=== PATIENT | female | born 1960 | race Caucasian/White ===

== ENCOUNTER 2025-01-31 20:04 | Emergency (ER) | payer MEDICARE, SELFPAY ==
[2025-01-31 20:19] VITALS: BP 144/72; PULSE 111; RESP 20; TEMP 37.5; O2SAT 93; BMI 53.6
[2025-01-31 20:34] VITALS: PULSE 99; O2SAT 98
--- NOTE | 2025-01-31 20:48 | USR_ITS ---
PROCEDURE INFORMATION: Exam: US Left Limited Joint or Other Non-Vascular Extremity Structure Exam date and time: 01/31/2025 9:38 PM Age: 64 years old Clinical indication: Injury or trauma; Other: Unknown; Blunt trauma; Elbow; Left; Injury date: About two weeks ago; Additional info: Left elbow questionable abscess TECHNIQUE: Imaging protocol: US left limited joint or other nonvascular extremity structure. Real-time ultrasound with image documentation. Exam focused on the area of clinical interest. COMPARISON: No relevant prior studies available. FINDINGS: Soft tissues: Unremarkable. No loculated collections. Other findings: Subcutaneous complex fluid collection measuring 2.2 x 0.8 x 1.5 cm in the elbow region in the area of concern consistent with an abscess, an olecranon bursitis may also be a consideration depending on the clinical setting. US/US soft tissue/extremity 11472 IMPRESSION: Subcutaneous complex fluid collection measuring 2.2 x 0.8 x 1.5 cm in the elbow region in the area of concern consistent with an abscess, an olecranon bursitis may also be a consideration depending on the clinical setting.
[2025-01-31 21:04] LABS: Erythrocyte Sedimentation Rate 27 mm/hr (0-15)
[2025-01-31 21:05] LABS: Basophils % 0.3 %; Eosinophils # 0.2 10^3/uL (0.0-0.8); Eosinophils % 1.6 %; Hematocrit 37.7 % (36-47); Lymphocytes # 2.1 10^3/uL (0.8-4.8); Lymphocytes % 22.6 %; Mean Corpuscular HGB Conc 33.2 g/dL (30-55); Mean Corpuscular Hemoglobin 29.9 pg (27-33); Mean Corpuscular Volume 90.2 fl (85-98); Mean Platelet Volume 10.1 fL (7.4-10.4); Monocytes # 0.8 10^3/uL (0.2-0.9); Monocytes % 8.8 %; Neutrophils # 6.14 10^3/uL (1.8-7.7); Neutrophils % 66.5 %; Nucleated Red Blood Cells % 0 %; Platelet Count 258 10^3/cmm (157-399); Red Blood Count 4.18 10^6/uL (3.85-5.65); White Blood Count 9.24 10^3/uL (3.29-11.43)
--- NOTE | 2025-01-31 21:15 | ED_ITS ---
HPI - Wound/Laceration 2 General: Chief Complaint: Wound/Laceration Stated Complaint: Left Elbow Injury Time Seen by Provider: 01/31/25 20:06 Source: patient Mode of arrival: ambulatory Limitations: no limitations History of Present Illness: Patient is a 64-year-old female who presents the emergency department complaining of left elbow redness and pain for the past week. States that it started swelling and recently burst open with purulent drainage, and notes that the pain has gotten severely worse. Pain shooting down the left arm. Denies any fever, nausea/vomiting, or any other systemic signs of illness. Denies any known trauma or history of bursitis. She is afebrile at this time. Onset (ago): week(s) Extremity Location: Left: elbow Associated symptoms: Reports no associated symptoms; Denies chills, fever(s), nausea or vomiting Related Data Previous Rx's ?Medication ?Instructions ?Recorded doxycycline hyclate 100 mg tablet 100 mg PO BID 10 day s #20 tabs 01/31/25 Allergies Allergy/AdvReac Type Severity Reaction Status Date / Time silver Allergy Unknown Verified 01/31/25 20:23 Review of Systems 2 General: Reports: 10 or more systems reviewed and unremarkable except in HPI and below Const: Denies: fever(s) or chills Card: Denies: chest pain Resp: Denies: dyspnea GI: Denies: abdominal pain, nausea, vomiting or diarrhea Musc: Reports: joint pain (Left elbow); Denies: extremity pain Skin/Breast: Reports: erythema, skin pain, skin tenderness, sores and new lesions; Denies: rash Neuro: Denies: headache(s) Physical Exam 2 Const: COMMON NORMALS: no acute distress, average body habitus, patient oriented x3, no limitations, healthy appearing, alert and well nourished HENMT: COMMON NORMALS: normocephalic and atraumatic HEAD & SCALP: n ormocephalic and atraumatic Neck/C-Spine: COMMON NORMALS: full ROM, no lymphadenopathy, supple and no meningeal signs OTHER: Tracheostomy Resp: COMMON NORMALS: normal respiratory effort, No use of accessory muscles and clear to auscultation bilaterally AUSCULTATION: clear to auscultation bilaterally Cardio: COMMON NORMALS: regular rate and regular rhythm RATE: regular rate RHYTHM: regular rhythm Extremity: COMMON NORMALS: full ROM and capillary refill normal NARRATIVE EXTREMITY EXAM: Lesion to olecranon on the left side with purulent drainage and surrounding erythema. Medial to this there is a second erythematous/indurated lesion with associated swelling. Neuro: COMMON NORMALS: patient oriented x3, moves all extremities, no focal motor deficits and no sensory deficits noted SENSORIUM/ORIENTATION: Yes alert MENINGEAL SIGNS: Yes no meningeal signs Skin: COMMON NORMALS: no rashes or lesions noted, no wounds and turgor normal GENERAL SKIN EXAM: no rashes or lesions noted and turgor normal Course 2 Vital Signs: Vital signs: Vital Signs Temperature 99.5 F 01/31/25 20:19 Pulse Rate 99 01/31/25 20:34 Respiratory Rate 20 H 01/31/25 20:19 Blood Pressure 144/72 01/31/25 20:19 Pulse Oximetry 98 01/31/25 20:34 Oxygen Delivery Me thod Room Air 01/31/25 20:34 MDM - Wound/Laceration Medical Decision Making This patient presented with swelling to left elbow. It was actively draining purulent material at time of exam. Labs showed no elevation in white count or CRP, mildly elevated ESR. Ultrasound showed evidence of an abscess, though it is already open and draining we will treat with antibiotics. She had no other symptoms to report and there was no red streaking on exam or other concerning physical exam findings of infection spreading. Ultimately she is to follow-up with her regular doctor in the next 48 hours for recheck and to make sure that she is getting better on her doxycycline. Also given a dose of IV ceftriaxone here. Return precautions given, she verbalized understanding. Lab Data 01/31/25 20:58 Laboratory Results WBC 9.24 10^3/uL (3.29-11.43) 01/31/25 20:58 RBC 4.18 10^6/uL (3.85-5.65) 01/31/25 20:58 Hgb 12.50 g/dL (11.27-16.99) 01/31/25 20:58 Hct 37.7 % (36-47) 01/31/25 20:58 MCV 90.2 fl (85-98) 01/31/25 20:58 MCH 29.9 pg (27-33) 01/31/25 20:58 MCHC 33.2 g/dL (30-55) 01/31/25 20:58 RDW 13.0 % (12.1-15.1) 01/31/25 20:58 Plt Count 258 10^3/cmm (157-399) 01/31/25 20:58 MPV 10.1 fL (7.4-10.4) 01/31/25 20:58 Neut % (Auto) 66.5 % 01/31/25 20:58 Lymph % (Auto) 22.6 % 01/31/25 20:58 Stone % (Auto) 8.8 % 01/31/25 20:58 Eos % (Auto) 1.6 % 01/31/25 20:58 Baso % (Auto) 0.3 % 01/31/25 20:58 Neut # (Auto) 6.14 10^3/uL (1.8-7.7) 01/31/25 20:58 Lymph # (Auto) 2.1 10^3/uL (0.8-4.8) 01/31/25 20:58 Stone # (Auto) 0.8 10^3/uL (0.2-0.9) 01/31/25 20:58 Eos # (Auto) 0.2 10^3/uL (0.0-0.8) 01/31/25 20:58 Baso # (Auto) 0.0 10^3/uL (0.0-0.1) 01/31/25 20:58 Nucleated RBC % (auto) 0 % 01/31/25 20:58 Nucleated RBCs # 0.0 /100WBC 01/31/25 20:58 ESR 27 mm/hr (0-15) H 01/31/25 20:58 C-Reactive Protein 3.0 mg/L (0.0-4.9) 01/31/25 20:58 XR interpretation done by ED provider, pending radiology final review Discharge Plan Discharge Patient Disposition: Home Clinical Impression: Abscess of left elbow Condition: Stable Prescriptions: New doxycycline hyclate 100 mg tablet 100 mg PO BID 10 Days Qty: 20 0RF Discharge Orders: Discharge ED (Routine); Ordered 01/31/25 Ordered By: Gallito Rodriguez Referrals: SABI RUFF APRN [Primary Care Provider] - Patient Instructions: Abscess (ED), Abscess Follow-up (ED) Activity Restrictions/Additional Instructions: Take doxycycline as prescribed. Leave the wound open to drain. Keep clean and dry. Please follow-up with your primary care provider in the next couple of days we discussed. If you have any fevers, red streaking, severe worsening of pain or swelling, or any other concerns please return to the ED. Print Language: Tongan Coding Level of Care Code ED [employer]
[2025-01-31 23:23] VITALS: BP 125/79; PULSE 98; RESP 22; O2SAT 94
[2025-01-31] MEDS: cefTRIAXone 1,000 mg SDV 1000 MG IVP (23:24)
[2025-01-31] MEDS: doxycycline 100 mg Tablet PO (23:24)
[2025-01-31 23:35] VITALS: BP 125/79; PULSE 98; O2SAT 94
== END 2025-01-31 23:36 | disposition home or self-care (01) ==
PROVIDERS: Emergency Provider Physician Assistant; PCP Nurse Practitioner Family
DX: L02.414 Cutaneous abscess of left upper limb (principal)
CPT/HCPCS: 76882; 85025; 85651; 86140; 96374; 99284; J0696; J9999